=== PATIENT | female | born 1980 | race Caucasian/White ===

== ENCOUNTER 2019-08-08 00:40 | Emergency (ER) | payer BC ==
[2019-08-08 00:58] VITALS: BP 181/74; PULSE 88
[2019-08-08] MEDS ORDERED: Bacitracin/Neomycin/Polymyxin B Oint 0.9 GM U/D Packet TOP ONE (01:42)
[2019-08-08] MEDS ORDERED: Bacitracin/Neomycin/Polymyxin B Oint 0.9 GM U/D Packet ONE (01:43)
[2019-08-08] MEDS ORDERED: Cephalexin 250 MG Cap PO ONE (01:44)
--- NOTE | 2019-08-08 01:50 | EDM.PDOC ---
ED HPI GENERAL MEDICAL PROBLEM - General Chief Complaint: Laceration Stated Complaint: Right Ear pain Time Seen by Provider: 08/08/19 01:00 Source of Information: Reports: Patient History Limitations: Reports: No Limitations - History of Present Illness INITIAL COMMENTS - FREE TEXT/NARRATIVE: Patient lacerated right upper ear/hit it on edge of hot tub. No other injuries/ complaints. 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) Right Ear Pain Score (Numeric/FACES): 1 - Related Data Allergies Allergy/AdvReac Type Severity Reaction Status Date / Time No Known Allergies Allergy Verified 02/08/15 09:42 Home Meds: Home Meds Acetaminophen [Pain Relief] 650 mg PO Q4HR PRN 08/08/19 [History] ClonazePAM [KlonoPIN] 0.5 mg PO DAILY PRN 08/08/19 [History] FLUoxetine [PROzac] 40 mg PO BID 08/08/19 [History] Ibuprofen 400 mg PO Q6HR PRN 08/08/19 [History] Mirtazapine 15 mg PO BEDTIME 08/08/19 [History] Pregabalin 50 mg PO BID 08/08/19 [History] busPIRone [Buspar] 10 mg PO TID 08/08/19 [History] cephALEXin [Keflex] 500 mg PO Q6H #27 cap 08/08/19 [Rx] lisinopriL [Lisinopril] 10 mg PO DAILY 08/08/19 [History] Past Medical History Cardiovascular History: Reports: Hypertension Musculoskeletal History: Reports: Fibromyalgia Psychiatric History: Reports: Anxiety, Depression Social & Family History - Tobacco Use Smoking Status *Q: Current Every Day Smoker Years of Tobacco use: 25 Packs/Tins Daily: 1.0 - Caffeine Use Caffeine Use: Reports: Soda - Recreational Drug Use Recreational Drug Use: No ED ROS GENERAL - Review of Systems Review Of Systems: Comprehensive ROS is negative, except as noted in HPI. ED EXAM, SKIN/RASH Exam: See Below Exam Limited By: No Limitations General Appearance: Alert, WD/WN, Anxious Eye Exam: Bilateral Eye: EOMI, PERRL Ears: Normal Canal, Hearing Grossly Normal, Other (top of right ear lacerated) Nose: No: Nasal Deformity, Nasal Swelling, Nasal Drainage Throat/Mouth: Normal Lips, Normal Voice, No Airway Compromise Head: Normocephalic Neck: Supple, Non-Tender, Full Range of Motion Respiratory/Chest: No Respiratory Distress Extremities: Normal Capillary Refill Neurological: Alert, Oriented, CN II-XII Intact, Normal Cognition, Normal Gait Psychiatric: Anxious Skin: Warm, Dry ED SKIN PROCEDURES - Laceration/Wound Repair Right Upper Ear Appearance: Subcutaneous, Irregular, Clean Anesthetic Type: Local Local Anesthesia - Lidocaine (Xylocaine): 1% Plain Local Anesthetic Volume: 4cc Skin Prep: Providone-Iodine (Betadine) Exploration/Debridement/Repair: Wound Explored, Explored to Base, Minimal Debridement, No Foreign Material Found Closed with: Sutures Lac/Wound length In cm: 4 Suture Size: 5-0 # of Sutures: 11 Suture Type: Silk Suture Size: 4-0 # of Sutures: 1 (Cartilage repair) Repaired with: Chromic Drain Placement: No Sterile Dressing Applied: Nurse Tetanus Status Addressed: Yes Complications: No Course - Vital Signs Last Recorded V/S: Last Vital Signs Temp 36.2 C 08/08/19 00:57 Pulse 88 08/08/19 00:57 Resp 14 08/08/19 00:57 BP 181/74 H 08/08/19 00:57 Pulse Ox 98 08/08/19 00:57 - Orders/Labs/Meds Meds: Medications Discontinued Medications Generic Name Dose Route Start Last Admin Trade Name Freq PRN Reason Stop Dose Admin Cephalexin 500 mg 08/08/19 01:44 Keflex PO 08/08/19 01:45 ONETIME ONE Lidocaine HCl Confirm 08/08/19 01:08 Xylocaine-Mpf 1% Administered 08/08/19 01:09 Dose 5 ml .ROUTE .STK-MED ONE Neomycin/Polymyxin/Bacitracin 1 each 08/08/19 01:42 Triple Antibiotic Oint TOP 08/08/19 01:43 ONETIME ONE Neomycin/Polymyxin/Bacitracin Confirm 08/08/19 01:43 Triple Antibiotic Oint Administered 08/08/19 01:44 Dose 1 each .ROUTE .STK-MED ONE - Re-Assessments/Exams Free Text/Narrative Re-Assessment/Exam: 08/08/19 02:25 Laceration repaired. 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 He would like to see the patient next week/within 2 weeks at clinic to make certain it is healing correctly given location of injury. Patient placed on Keflex. Precautions reviewed. Wound care reviewed. To follow up as needed if there are any problems. BP much improved at time of discharge. Departure - Departure Time of Disposition: 01:50 Disposition: Home, Self-Care 01 Condition: Good Clinical Impression: Laceration of right external ear Qualifiers: Encounter type: initial encounter Qualified Code(s): S01.311A - Laceration without foreign body of right ear, initial encounter - Discharge Information *PRESCRIPTION DRUG MONITORING PROGRAM REVIEWED*: Not Applicable *COPY OF PRESCRIPTION DRUG MONITORING REPORT IN PATIENT MARLON: Not Applicable Prescriptions: cephALEXin [Keflex] 500 mg PO Q6H #27 cap Instructions: Cephalexin tablets or capsules, Laceration Care, Adult, Easy-to- Read Referrals: Danica Freeman MD [Primary Care Provider] - Forms: ED Department Discharge Additional Instructions: Call [facility] tomorrow and make a follow up appointment to see from ENT next week or the following week to get your ear rechecked to make sure it is healing well. Watch for signs of infection and follow up if there are any problems. Ibuprofen or Tylenol for pain. Light ice application may be helpful 5-10 min every hour. Sutures should stay in for 7-10 days. Have them evaluated and removed by if you can get an appointment with him for later next week. Sepsis Event Note - Evaluation Sepsis Screening Result: No Definite Risk - Focused Exam Vital Signs: Vital Signs Temp Pulse Resp BP Pulse Ox 08/08/19 00:57 36.2 C 88 14 181/74 H 98 Date Exam was Performed: 08/08/19 Time Exam was Performed: 02:17
== END 2019-08-08 02:10 | disposition home or self-care (01) ==
LOC: LL.ED 00:40
DX: S01.311A Laceration without foreign body of right ear, initial encounter (principal); I10 Essential (primary) hypertension; F17.210 Nicotine dependence, cigarettes, uncomplicated; Z79.899 Other long term (current) drug therapy; W22.8XXA Striking against or struck by other objects, initial encounter
CPT/HCPCS: 12013; 99282; J2001

== ENCOUNTER 2020-10-07 20:53 | Emergency (ER) | payer BC ==
[2020-10-07] MEDS: Albuterol/Ipratropium 3.0-0.5 MG/3 ML Neb Soln NEB ONE (21:34)
[2020-10-07 21:54] LABS: CHLORIDE,CL 105 mmol/L (98-107); SODIUM,NA 141 mmol/L (136-145)
[2020-10-07 22:19] LABS: PTT,PARTIAL THROMBOPLSTIN TIME 31.5 SEC (24.5-32.8)
[2020-10-07] MEDS: Iopamidol 755 Mg/ML 100 ML Bottle IVPUSH STA (22:28)
--- NOTE | 2020-10-07 22:33 | EDM.PDOC ---
ED HPI GENERAL MEDICAL PROBLEM - General Chief Complaint: Respiratory Problem Stated Complaint: SOB, DYSPNEA Time Seen by Provider: 10/07/20 21:00 Source of Information: Reports: Patient, Family History Limitations: Reports: No Limitations - History of Present Illness INITIAL COMMENTS - FREE TEXT/NARRATIVE: Pt. presents to ER with complaints of shortness of breath, productive cough, sore throat, and respirophasic chest pain with radiation into upper back. Pt. states that she has been experiencing these symptoms for over a week. Symptoms are worse in the past 5 days. Pt. has not recently been hospitalized. She states that she has been out of her lisinopril since last Sunday. Pt. has been vaccinated with 2 doses of Moderna Covid Vaccine, second dose was about 3 weeks ago. She smokes about 1 1/2 packs of cigarettes a day. She is not currently on HRT or oral control. Denies any calf pain. No history of thromboembolism in the past. Pt. denies any history of recent exposure to covid 19 that she is aware of. She has been running a fever, the last fever she had was yesterday at 100.8. Nursing staff relates that pt. O2 sat was on 89% on RA, increases to 92-93% on O2 per NC at 2L/min. Pt. denies any nausea, vomiting, diarrhea, melena, bloody stools. She complains of feeling fatigued. 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: Reports: Acetaminophen, NSAIDS, Other Medication(s) Left Chest Pain Score (Numeric/FACES): 5 - Related Data Allergies Allergy/AdvReac Type Severity Reaction Status Date / Time No Known Allergies Allergy Verified 10/07/20 21:05 Home Meds: Home Meds Acetaminophen [Pain Relief] 650 mg PO Q4HR PRN 08/08/19 [History] ClonazePAM [KlonoPIN] 0.5 mg PO DAILY PRN 08/08/19 [History] FLUoxetine [PROzac] 40 mg PO BID 08/08/19 [History] Ibuprofen 400 mg PO Q6HR PRN 08/08/19 [History] Mirtazapine 15 mg PO BEDTIME 08/08/19 [History] Pregabalin 50 mg PO BID 08/08/19 [History] busPIRone [Buspar] 10 mg PO TID 08/08/19 [History] lisinopriL [Lisinopril] 10 mg PO DAILY 08/08/19 [History] Past Medical History Cardiovascular History: Reports: Hypertension Musculoskeletal History: Reports: Fibromyalgia Psychiatric History: Reports: Anxiety, Depression Social & Family History - Caffeine Use Caffeine Use: Reports: Soda ED ROS GENERAL - Review of Systems Review Of Systems: See Below Constitutional: Reports: Fever, Chills, Malaise, Fatigue HEENT: Reports: No Symptoms Respiratory: Reports: Shortness of Breath, Pleuritic Chest Pain, Cough, Sputum ED EXAM, GENERAL - Physical Exam Exam: See Below Exam Limited By: No Limitations General Appearance: Alert, WD/WN, No Apparent Distress Course - Vital Signs Last Recorded V/S: Last Vital Signs Temp 36.6 C 10/07/20 22:08 Pulse 90 10/07/20 22:08 Resp 24 H 10/07/20 22:08 BP 166/61 H 10/07/20 22:08 Pulse Ox 94 L 10/07/20 22:08 - Orders/Labs/Meds Orders: Active Orders 24 hr Category Date Time Status EKG Documentation Completion [RC] STAT Care 10/07/20 21:06 Active Peripheral IV Care [RC] . DIRECTED Care 10/07/20 21:07 Active RT Aerosol Therapy [RC] ASDIRECTED Care 10/07/20 21:29 Active Ang Chest [CT] Stat Exams 10/07/20 22:02 Taken CORONAVIRUS COVID-19 EILEEN [MOLEC] Stat Lab 10/07/20 21:43 Received CULTURE BLOOD [BC] Stat Lab 10/07/20 21:27 Received CULTURE BLOOD [BC] Stat Lab 10/07/20 21:45 Received Piperacillin/Tazobactam [Zosyn] 4.5 gm Med 10/07/20 23:09 Ordered Sodium Chloride 0.9% [Normal Saline] 100 ml IV ONETIME Sodium Chloride 0.9% [Saline Flush] Med 10/07/20 21:06 Active 10 ml FLUSH ASDIRECTED PRN VANCOmycin 1.5 GM/300 ML 1.5 gm Med 10/07/20 23:04 Ordered Premix Bag 1 bag IV ONETIME Blood Culture x2 Reflex Set [OM.PC] Stat Oth 10/07/20 21:48 Ordered Peripheral IV Insertion Adult [OM.PC] Routine Oth 10/07/20 21:06 Ordered Medication Orders Vancomycin HCl 1.5 gm/ Premix 300 mls @ 200 mls/hr IV ONETIME ONE Stop: 10/08/20 00:33 Piperacillin Sod/Tazobactam (Sod 4.5 gm/ Sodium Chloride) 100 mls @ 200 mls/hr IV ONETIME ONE Stop: 10/07/20 23:38 Sodium Chloride (Sodium Chloride 0.9% 10 Ml Syringe) 10 ml FLUSH ASDIRECTED PRN PRN Reason: Keep Vein Open Last Admin: 10/07/20 22:45 Dose: 10 ml Documented by: CLEM Labs: Laboratory Tests 10/07/20 10/07/20 10/07/20 Range/Units 21:37 21:37 21:37 WBC 31.6 H (4.0-10.2) K/uL RBC 3.79 (3.77-5.09) M/uL Hgb 11.2 L D (11.7-15.5) g/dL Hct 32.5 L (34.0-46.0) % MCV 85.8 D (84.0-98.0) fL MCH 29.6 (28.2-33.3) pg MCHC 34.5 (31.7-36.0) g/dL RDW 14.4 H (11.2-14.1) % Plt Count 487 H (150-350) K/uL Neut % (Auto) 85.3 H (45.0-80.0) % Lymph % (Auto) 8.1 L (10.0-50.0) % O'Brien % (Auto) 6.1 (2.0-14.0) % Eos % (Auto) 0.4 (0.0-5.0) % Baso % (Auto) 0.1 (0.0-2.0) % Neut # (Auto) 26.94 H (1.40-7.00) K/uL Lymph # (Auto) 2.57 (0.50-3.50) K/uL O'Brien # (Auto) 1.94 H (0.00-1.00) K/uL Eos # (Auto) 0.13 (0.00-0.50) K/uL Baso # (Auto) 0.02 (0.00-0.20) K/uL PT (9.5-12.0) SEC INR APTT (24.5-32.8) SEC D-Dimer, Quantitative 1870 H (0-400) ng/mL Sodium 141 (136-145) mmol/L Potassium 3.0 L (3.5-5.1) mmol/L Chloride 105 (98-107) mmol/L Carbon Dioxide 21.9 (21.0-32.0) mmol/L BUN 11 (7-18) mg/dL Creatinine 0.54 (0.51-1.17) mg/dL Est Cr Clr Drug Dosing TNP Estimated GFR (MDRD) > 60 mL/min Glucose 104 H (70-99) mg/dL Lactic Acid (0.4-2.0) mmol/L Calcium 8.8 (8.5-10.1) mg/dL Magnesium 1.6 L (1.8-2.4) mg/dL Total Bilirubin 0.3 (0.2-1.0) mg/dL AST 18 (15-37) U/L ALT 17 (12-78) U/L Alkaline Phosphatase 184 H (46-116) IU/L Troponin I 0.000 (0.000-0.056) ng/mL C-Reactive Protein 102.0 H (<=0.9) mg/dL Total Protein 6.7 (6.4-8.2) g/dL Albumin 1.9 L (3.4-5.0) g/dL SARS-CoV-2 Ag (Rapid) (NEGATIVE) 10/07/20 10/07/20 10/07/20 Range/Units 21:43 21:45 21:45 WBC (4.0-10.2) K/uL RBC (3.77-5.09) M/uL Hgb (11.7-15.5) g/dL Hct (34.0-46.0) % MCV (84.0-98.0) fL MCH (28.2-33.3) pg MCHC (31.7-36.0) g/dL RDW (11.2-14.1) % Plt Count (150-350) K/uL Neut % (Auto) (45.0-80.0) % Lymph % (Auto) (10.0-50.0) % O'Brien % (Auto) (2.0-14.0) % Eos % (Auto) (0.0-5.0) % Baso % (Auto) (0.0-2.0) % Neut # (Auto) (1.40-7.00) K/uL Lymph # (Auto) (0.50-3.50) K/uL O'Brien # (Auto) (0.00-1.00) K/uL Eos # (Auto) (0.00-0.50) K/uL Baso # (Auto) (0.00-0.20) K/uL PT 12.2 H (9.5-12.0) SEC INR 1.2 APTT 31.5 (24.5-32.8) SEC D-Dimer, Quantitative (0-400) ng/mL Sodium (136-145) mmol/L Potassium (3.5-5.1) mmol/L Chloride (98-107) mmol/L Carbon Dioxide (21.0-32.0) mmol/L BUN (7-18) mg/dL Creatinine (0.51-1.17) mg/dL Est Cr Clr Drug Dosing Estimated GFR (MDRD) mL/min Glucose (70-99) mg/dL Lactic Acid 1.2 (0.4-2.0) mmol/L Calcium (8.5-10.1) mg/dL Magnesium (1.8-2.4) mg/dL Total Bilirubin (0.2-1.0) mg/dL AST (15-37) U/L ALT (12-78) U/L Alkaline Phosphatase (46-116) IU/L Troponin I (0.000-0.056) ng/mL C-Reactive Protein (<=0.9) mg/dL Total Protein (6.4-8.2) g/dL Albumin (3.4-5.0) g/dL SARS-CoV-2 Ag (Rapid) Negative (NEGATIVE) Meds: Medications Generic Name Dose Route Start Last Admin Trade Name Freq PRN Reason Stop Dose Admin Vancomycin HCl 1.5 gm/ Premix 300 mls @ 200 mls/hr 10/07/20 23:04 IV 10/08/20 00:33 ONETIME ONE Piperacillin Sod/Tazobactam 100 mls @ 200 mls/hr 07/01/21 23:09 Sod 4.5 gm/ Sodium Chloride IV 10/07/20 23:38 ONETIME ONE Sodium Chloride 10 ml 10/07/20 21:06 10/07/20 22:45 Sodium Chloride 0.9% 10 Ml Syringe FLUSH 10 ml ASDIRECTED PRN Administration Keep Vein Open Discontinued Medications Generic Name Dose Route Start Last Admin Trade Name Freq PRN Reason Stop Dose Admin Albuterol/Ipratropium 3 ml 10/07/20 21:28 10/07/20 21:34 Albuterol/Ipratropium 3.0-0.5 Mg/3 Ml Neb Soln NEB 10/07/20 21:29 3 ml ONETIME ONE Administration Ceftriaxone Sodium 2 gm/ 100 mls @ 200 mls/hr 10/07/20 22:34 10/07/20 22:45 Sodium Chloride IV 10/07/20 23:03 200 mls/hr ONETIME ONE Administration Iopamidol 100 ml 10/07/20 22:05 10/07/20 22:28 Iopamidol 755 Mg/Ml 100 Ml Bottle IVPUSH 10/07/20 22:06 100 ml ONETIME STA Administration - Radiology Interpretation Free Text/Narrative:: CTA of chest obtained. No PE noted. Several loculated infiltrates/? empyema noted on exam. - Re-Assessments/Exams Free Text/Narrative Re-Assessment/Exam: Pt. was kept on O2 per NC at 2L/min. Resp. rate in the low 20 range. She is speaking in full sentences. She does get quite dyspneic with activity. She was given a duoneb breathing treatment. Pt. was initially started on Rocephin but was changed to zosyn 4.5gm IV in ER. She was also given vancomycin 1.5gm IV. Departure - Departure Time of Disposition: 23:20 Disposition: DC/Tfer to Acute Hospital 02 Clinical Impression: Sepsis, Pneumonia - Discharge Information Forms: ED Department Discharge Sepsis Event Note (ED) - Evaluation Sepsis Screening Result: No Definite Risk - Focused Exam Vital Signs: Vital Signs Temp Pulse Resp BP Pulse Ox Pulse Ox 10/07/20 22:08 36.6 C 90 24 H 166/61 H 94 L 10/07/20 21:53 90 22 H 159/67 H 91 L 10/07/20 21:38 84 22 H 154/70 H 92 L 10/07/20 21:25 85 22 H 93 L 10/07/20 21:08 87 21 H 164/80 H 93 L 10/07/20 21:00 36.7 C 90 20 154/68 H 89 L 94 L - Problem List Review Problem List Initiated/Reviewed/Updated: Yes - My Orders Last 24 Hours: My Active Orders 10/07/20 21:06 EKG Documentation Completion [RC] STAT Sodium Chloride 0.9% [Saline Flush] 10 ml FLUSH ASDIRECTED PRN Peripheral IV Insertion Adult [OM.PC] Routine 10/07/20 21:07 Peripheral IV Care [RC] . DIRECTED 10/07/20 21:27 CULTURE BLOOD [BC] Stat 10/07/20 21:29 RT Aerosol Therapy [RC] ASDIRECTED 10/07/20 21:43 CORONAVIRUS COVID-19 EILEEN [MOLEC] Stat 10/07/20 21:45 CULTURE BLOOD [BC] Stat 10/07/20 21:48 Blood Culture x2 Reflex Set [OM.PC] Stat 10/07/20 22:02 Ang Chest [CT] Stat 10/07/20 23:04 VANCOmycin 1.5 GM/300 ML 1.5 gm Premix Bag 1 bag IV ONETIME 10/07/20 23:09 Piperacillin/Tazobactam [Zosyn] 4.5 gm Sodium Chloride 0.9% [Normal Saline] 100 ml IV ONETIME - Assessment/Plan Last 24 Hours: My Active Orders 10/07/20 21:06 EKG Documentation Completion [RC] STAT Sodium Chloride 0.9% [Saline Flush] 10 ml FLUSH ASDIRECTED PRN Peripheral IV Insertion Adult [OM.PC] Routine 10/07/20 21:07 Peripheral IV Care [RC] . DIRECTED 10/07/20 21:27 CULTURE BLOOD [BC] Stat 10/07/20 21:29 RT Aerosol Therapy [RC] ASDIRECTED 10/07/20 21:43 CORONAVIRUS COVID-19 EILEEN [MOLEC] Stat 10/07/20 21:45 CULTURE BLOOD [BC] Stat 10/07/20 21:48 Blood Culture x2 Reflex Set [OM.PC] Stat 10/07/20 22:02 Ang Chest [CT] Stat 10/07/20 23:04 VANCOmycin 1.5 GM/300 ML 1.5 gm Premix Bag 1 bag IV ONETIME 10/07/20 23:09 Piperacillin/Tazobactam [Zosyn] 4.5 gm Sodium Chloride 0.9% [Normal Saline] 100 ml IV ONETIME Plan: Pt. will be transferred to [facility]. She will need further workup not available at this facility, including IR for aspiration of loculations. Pt. was accepted by Dr. Keen. Pt. is a code 1. She will be transported by [facility] ground ambulance.
[2020-10-07] MEDS: cefTRIAXone 2 GM in Sodium Chloride 0.9% 100 ML IV ONE (22:45)
[2020-10-07] MEDS: Sodium Chloride 0.9% 10 ML Syringe FLUSH PRN (22:45)
[2020-10-07 23:20] VITALS: PULSE 85
[2020-10-07] MEDS: Acetaminophen 500 MG Tab PO ONE (23:34)
[2020-10-07] MEDS: Piperacillin/Tazobactam 4.5 GM in Sodium Chloride 0.9% 100 ML IV ONE (23:36)
[2020-10-07] MEDS: Ibuprofen 600 MG Tab PO ONE (23:39)
[2020-10-07] MEDS: VANCOmycin 1.5 GM/300 ML 1.5 GM in Premix Bag 1 BAG IV ONE (23:41)
[2020-10-07] MEDS: Morphine 4 MG/ML Syringe IVPUSH ONE (23:51)
[2020-10-08 02:13] VITALS: BP 174/86
== END 2020-10-08 ==
LOC: LL.ED 20:53
DX: A41.9 Sepsis, unspecified organism (principal); J18.9 Pneumonia, unspecified organism; I10 Essential (primary) hypertension; Z20.822 Contact with and (suspected) exposure to COVID-19; Z79.899 Other long term (current) drug therapy
CPT/HCPCS: 36415; 71275; 80053; 83605; 83735; 84484; 85025; 85379; 85610; 85730; 86140; 87040; 87426; 93005; 94640; 96365; 96367; 96375; 99284; 99285-25; A9270-GY; J0696; J2270; J2543; J3370; J7620-GY; Q9967